=== PATIENT | male | born 1945 | race Caucasian/White ===

== ENCOUNTER 2023-01-19 09:58 | Inpatient (IN) | payer OTHER ==
[~2023-01-19] VITALS: Ht 177.8 cm; Wt 72.6 kg
[2023-01-19 10:00] VITALS: BP_SYST 111; PULSE 137; RESP 19; TEMP 97.8; O2SAT 99
[2023-01-19 10:30] LABS: BASOPHILS # (AUTO) 0.1 K/uL (0.0-0.2); BASOPHILS % (AUTO) 1.2 % (0.0-2.0); EOSINOPHILS # (AUTO) 0.2 K/uL (0.0-0.4); EOSINOPHILS % (AUTO) 4.6 % (0.0-4.0); HEMOGLOBIN 8.2 g/dL (14.0-18.0); LYMPHOCYTES # (AUTO) 0.6 K/uL (1.0-5.5); LYMPHOCYTES % (AUTO) 12.5 % (20.5-51.5); MEAN CORPUSCULAR HEMOGLOBIN 31 pg (27-31); MEAN CORPUSCULAR HGB CONC 33 % (32-36); MEAN CORPUSCULAR VOLUME 94 fL (79.0-98.0); MONOCYTES # (AUTO) 1.1 K/uL (0.0-1.0); MONOCYTES % (AUTO) 23.3 % (1.7-9.3); NEUTROPHILS # (AUTO) 2.7 K/uL (1.8-7.7); NEUTROPHILS % (AUTO) 58.4 % (40.0-70.0); PLATELET COUNT (AUTO) 263 K/uL (130-430); RED BLOOD CELL COUNT(AUTO) 2.68 MIL/uL (4.2-6.2); RED CELL DISTRIBUTION WIDTH 16.9 % (9.0-15.0); WHITE BLOOD COUNT (AUTO) 4.6 K/uL (4.8-10.8)
[2023-01-19] MEDS ORDERED: DILTIAZEM HCL 60 MG TABLET PO ONE (10:30)
[2023-01-19] MEDS ORDERED: dilTIAZem HCL IVP 5 MG/ML VIAL IVP ONE (10:30)
[2023-01-19 10:49] LABS: ANION GAP 13 (5-15); CALCIUM 8.8 mg/dL (8.4-11.0); CARBON DIOXIDE 21 mmol/L (23-29); CHLORIDE 103 mmol/L (98-107); CREATININE 1.06 mg/dL (0.55-1.30); GLUCOSE 112 mg/dL (74-106); POTASSIUM 3.4 mmol/L (3.5-5.1); SODIUM SERUM 137 mmol/L (136-145); UREA NITROGEN, BLOOD 22 mg/dL (8-21)
[2023-01-19 10:51] LABS: PROTHROMBIN TIME 10.7 SECS (9.5-12.5)
[2023-01-19 10:57] LABS: ALANINE AMINOTRANSFERASE 11 U/L (12-78); ASPARTATE AMINOTRANSFERASE 10 U/L (10-37); TOTAL BILIRUBIN 0.4 mg/dL (0.0-1.0); TOTAL PROTEIN, SERUM 5.8 g/dL (6.4-8.3)
[2023-01-19] MEDS ORDERED: NACL 0.9% 1,000 ML IV ONE (11:30)
[2023-01-19] MEDS ORDERED: HYDROcodone/ACETAMIN 5-325 MG TAB (NORCO/ VICODIN) PO ONE (12:45)
[2023-01-19] MEDS ORDERED: APIXABAN 2.5 MG TABLET PO ONE (13:00)
[2023-01-19] MEDS ORDERED: ATOR20TA64 PO (13:21)
[2023-01-19] MEDS ORDERED: ASPI-524 PO (13:21)
[2023-01-19] MEDS ORDERED: FERR325T30 PO (13:21)
[2023-01-19] MEDS ORDERED: IXAZ4CAP PO (13:21)
[2023-01-19] MEDS ORDERED: DOCU-144 PO (13:21)
[2023-01-19] MEDS ORDERED: TAMS-11 PO (13:21)
[2023-01-19] MEDS ORDERED: LENA10CA PO (13:21)
[2023-01-19] MEDS ORDERED: SYN50 PO (13:21)
[2023-01-19] MEDS ORDERED: DEXA4TAB PO (13:21)
[2023-01-19] MEDS ORDERED: LISI5TAB PO (13:21)
[2023-01-19 13:31] VITALS: BP_SYST 119; PULSE 71; RESP 18; TEMP 97.8; O2SAT 96
[2023-01-19 13:39] LABS: THYROID STIMULATING HORMONE 1.42 uIu/mL (0.34-4.82)
[2023-01-19] MEDS ORDERED: DILTIAZEM HCL 30 MG TABLET PO SCH (15:00)
[2023-01-19] MEDS ORDERED: CARVEDILOL 6.25 MG TABLET (COREG) PO SCH (21:00)
[2023-01-19] MEDS ORDERED: APIXABAN 2.5 MG TABLET PO SCH (21:00)
[2023-01-20] MEDS ORDERED: LEVOTHYROXINE SODIUM 0.05 MG TABLET PO SCH (07:00)
[2023-01-20] MEDS ORDERED: TAMSULOSIN HCL 0.4 MG CAP PO SCH (09:00)
[2023-01-20] MEDS ORDERED: lisinopriL 5 MG TABLET PO SCH (09:00)
[2023-01-20] MEDS ORDERED: ATORVASTATIN 20 MG TABLET PO SCH (09:00)
[2023-01-20] MEDS ORDERED: DECADRON 4 MG TABLET PO SCH (09:00)
[2023-01-20] MEDS ORDERED: FERROUS SULFATE 325 MG TABLET.DR PO SCH (09:00)
[2023-01-20] MEDS ORDERED: DOCUSATE SODIUM 100 MG CAPSULE PO SCH (09:00)
[2023-01-20] MEDS ORDERED: ASPIRIN 81 MG TAB.CHEW PO SCH (09:00)
== END 2023-01-19 14:49 | disposition left against medical advice (07) | DRG 309 ==
LOC: SED 09:58 → STU 12:58
PROVIDERS: ADMIT Specialist; ATTEND Specialist
DX: I48.91 Unspecified atrial fibrillation (principal); D68.69 Other thrombophilia; E44.1 Mild protein-calorie malnutrition; I10 Essential (primary) hypertension; E03.9 Hypothyroidism, unspecified; N40.0 Benign prostatic hyperplasia without lower urinary tract symptoms; Z79.01 Long term (current) use of anticoagulants; Z90.49 Acquired absence of other specified parts of digestive tract; Z85.850 Personal history of malignant neoplasm of thyroid; Z85.820 Personal history of malignant melanoma of skin; Z68.23 Body mass index [BMI] 23.0-23.9, adult
CPT/HCPCS: 36415; 71045; 80053; 80061; 84443; 84484; 85025; 85610-TC; 85730-TC; 93005; 93306; 96361; 96374; 99285; G0378; J3490

== ENCOUNTER 2023-02-26 16:01 | Inpatient (IN) | payer OTHER, MEDICAID ==
[~2023-02-26] VITALS: Ht 172.7 cm; Wt 63.5 kg
[~2023-02-26 16:01] MED LIST: ASPI-524 PO; ATOR20TA64 PO; DARA15VI SUBCUT; DEC4 PO; DEXA4TAB PO; DOCU-144 PO; FERR325T30 PO; FLUT1BLS15; IXAZ4CAP PO; LENA10CA PO; LISI-209 PO; LISI5TAB PO; SYN50 PO; TAMS-11 PO; TAMS0.4C96 PO; TIOT4MIS2 INH; ZOLE4VIA18 IV
[2023-02-26 16:09] VITALS: BP_SYST 119; PULSE 84; RESP 18; TEMP 98.3; O2SAT 97
[2023-02-26 16:48] LABS: MEAN CORPUSCULAR HEMOGLOBIN 33 pg (27-31); MEAN CORPUSCULAR HGB CONC 35 % (32-36); MEAN CORPUSCULAR VOLUME 95 fL (79.0-98.0); PLATELET COUNT (AUTO) 407 K/uL (130-430); RED CELL DISTRIBUTION WIDTH 17.8 % (9.0-15.0); WHITE BLOOD COUNT (AUTO) 6.7 K/uL (4.8-10.8)
[2023-02-26 16:55] LABS: ANION GAP 10 (5-15); CALCIUM 8.4 mg/dL (8.4-11.0); CARBON DIOXIDE 22 mmol/L (23-29); CHLORIDE 99 mmol/L (98-107); CREATININE 0.84 mg/dL (0.55-1.30); GLUCOSE 103 mg/dL (74-106); POTASSIUM 3.6 mmol/L (3.5-5.1); SODIUM SERUM 131 mmol/L (136-145); UREA NITROGEN, BLOOD 22 mg/dL (8-21)
[2023-02-26 16:59] LABS: RED BLOOD CELL COUNT(AUTO) 1.49 MIL/uL (4.2-6.2)
[2023-02-26 17:00] LABS: HEMATOCRIT 14.1 % (36-54); HEMOGLOBIN 4.9 g/dL (14.0-18.0)
[2023-02-26 17:02] LABS: ALANINE AMINOTRANSFERASE 27 U/L (12-78); ALBUMIN 2.5 g/dL (3.4-4.8); ASPARTATE AMINOTRANSFERASE 14 U/L (10-37); BILIRUBIN,DIRECT 0.1 mg/dL (0.0-0.3); TOTAL BILIRUBIN 0.3 mg/dL (0.0-1.0)
[2023-02-26 17:05] LABS: ANISOCYTOSIS 1+; BAND % (MANUAL) 3 % (0-6); BASOPHILS % (MANUAL) 0 % (0-2); EOSINOPHILS % (MANUAL) 0 % (0-7); LYMPHOCYTES % (MANUAL) 9 % (20-46); MONOCYTES % (MANUAL) 11 % (0-11); MYELOCYTES % 1 % (0-0); PLATELET ESTIMATE ADEQUATE (ADEQUATE)
[2023-02-26] MEDS ORDERED: PANTOPRAZOLE SODIUM 40 MG/VIAL (PROTONIX) IVP ONE (21:00)
[2023-02-26] MEDS ORDERED: PANTOPRAZOLE SODIUM 40 MG/VIAL (PROTONIX) ONE (23:19)
[2023-02-27] MEDS: D5/0.45 NS 1,000 ML IV SCH ×2 (00:41→04:22)
[2023-02-27] MEDS ORDERED: PANTOPRAZOLE SODIUM 40 MG/VIAL (PROTONIX) IVP SCH (09:00)
[2023-02-27] MEDS ORDERED: PANTOPRAZOLE SODIUM 40 MG/VIAL (PROTONIX) ONE (10:56)
[2023-02-27 17:04] VITALS: BP_SYST 151; PULSE 83; RESP 19; TEMP 98.2; O2SAT 97
[2023-02-28] MEDS ORDERED: ASPIRIN 81 MG TAB.CHEW PO SCH (09:00)
[2023-02-28] MEDS ORDERED: NICOTINE 21 MG/24 HR PATCH.TD24 TD SCH (09:00)
[2023-02-28] MEDS ORDERED: lisinopriL 5 MG TABLET PO SCH (09:00)
[2023-02-28] MEDS ORDERED: ZOLEDRONIC ACID 4 MG/5 ML VIAL IV SCH (09:00)
[2023-02-28] MEDS ORDERED: ATORVASTATIN 20 MG TABLET PO SCH (09:00)
[2023-02-28] MEDS ORDERED: DOCUSATE SODIUM 100 MG CAPSULE PO SCH (09:00)
[2023-02-28] MEDS ORDERED: DECADRON 4 MG TABLET PO SCH (09:00)
== END 2023-02-27 23:33 | disposition home or self-care (01) | DRG 378 ==
LOC: SED 16:01 → STU 18:30
PROVIDERS: ADMIT Specialist; ATTEND Specialist
PROC: 30233N1 Transfusion of Nonautologous Red Blood Cells into Peripheral Vein, Percutaneous Approach (ICD-10-PCS; principal; 2023-02-27)
DX: K92.2 Gastrointestinal hemorrhage, unspecified (principal); C90.00 Multiple myeloma not having achieved remission; D50.9 Iron deficiency anemia, unspecified; K25.9 Gastric ulcer, unspecified as acute or chronic, without hemorrhage or perforation; Z53.29 Procedure and treatment not carried out because of patient's decision for other reasons; N40.0 Benign prostatic hyperplasia without lower urinary tract symptoms; E03.9 Hypothyroidism, unspecified; E78.5 Hyperlipidemia, unspecified; Z79.82 Long term (current) use of aspirin; Z79.899 Other long term (current) drug therapy; D64.9 Anemia, unspecified
CPT/HCPCS: 36415; 71045; 80048; 80076; 83880; 84484; 85007; 85027; 86870; 86886; 86900; 86901; 86920; 93005; 99285; C9113; G0378; P9021

== ENCOUNTER 2023-03-01 04:24 | Inpatient (IN) | payer OTHER, MEDICAID ==
[~2023-03-01] VITALS: Ht 177.8 cm; Wt 64.6 kg
[~2023-03-01 04:24] MED LIST changes: -DEC4 PO; -LISI-209 PO; -SYN50 PO; -TAMS0.4C96 PO
[2023-03-01] MEDS ORDERED: NACL 0.9% 1,000 ML IV ONE (04:30)
[2023-03-01] MEDS ORDERED: NICOTINE 21 MG/24 HR PATCH.TD24 TD SCH (04:30)
[2023-03-01 04:33] VITALS: BP_SYST 95; PULSE 68; RESP 20; TEMP 97.5; O2SAT 95
[2023-03-01 04:53] LABS: BASOPHILS % (AUTO) 0.8 % (0.0-2.0); EOSINOPHILS % (AUTO) 0.4 % (0.0-4.0); LYMPHOCYTES # (AUTO) 0.4 K/uL (1.0-5.5); LYMPHOCYTES % (AUTO) 8.4 % (20.5-51.5); MEAN CORPUSCULAR HEMOGLOBIN 32 pg (27-31); MEAN CORPUSCULAR HGB CONC 34 % (32-36); MEAN CORPUSCULAR VOLUME 94 fL (79.0-98.0); MONOCYTES # (AUTO) 0.6 K/uL (0.0-1.0); MONOCYTES % (AUTO) 11.3 % (1.7-9.3); NEUTROPHILS # (AUTO) 3.9 K/uL (1.8-7.7); NEUTROPHILS % (AUTO) 79.1 % (40.0-70.0); PLATELET COUNT (AUTO) 395 K/uL (130-430); RED CELL DISTRIBUTION WIDTH 20.3 % (9.0-15.0); WHITE BLOOD COUNT (AUTO) 4.9 K/uL (4.8-10.8)
[2023-03-01 05:02] LABS: RED BLOOD CELL COUNT(AUTO) 1.65 MIL/uL (4.2-6.2)
[2023-03-01] MEDS ORDERED: NICOTINE 21 MG/24 HR PATCH.TD24 TD ONE (05:04)
[2023-03-01 05:08] LABS: ANION GAP 13 (5-15); CALCIUM 8.2 mg/dL (8.4-11.0); CARBON DIOXIDE 20 mmol/L (23-29); CHLORIDE 102 mmol/L (98-107); CREATININE 0.93 mg/dL (0.55-1.30); GLUCOSE 101 mg/dL (74-106); POTASSIUM 3.7 mmol/L (3.5-5.1); SODIUM SERUM 135 mmol/L (136-145); UREA NITROGEN, BLOOD 24 mg/dL (8-21)
[2023-03-01 05:09] LABS: INR 1.1 (0.80-1.20)
[2023-03-01 05:15] LABS: ALANINE AMINOTRANSFERASE 27 U/L (12-78); ALBUMIN 2.4 g/dL (3.4-4.8); ASPARTATE AMINOTRANSFERASE 12 U/L (10-37); TOTAL BILIRUBIN 0.4 mg/dL (0.0-1.0)
[2023-03-01 05:26] LABS: HEMATOCRIT 15.6 % (36-54); HEMOGLOBIN 5.2 g/dL (14.0-18.0)
[2023-03-01] MEDS ORDERED: PANTOPRAZOLE SODIUM 40 MG/VIAL (PROTONIX) IVP ONE (05:30)
[2023-03-01 07:30] LABS: BILIRUBIN,URINE NEGATIVE (NEGATIVE); BLOOD, URINE NEGATIVE (NEGATIVE); CLARITY/URINE CLEAR (CLEAR); COLOR,URINE YELLOW (YELLOW); GLUCOSE,URINE NEGATIVE (NEGATIVE); KETONES,URINE 1+ (NEGATIVE); LEUKOCYTE ESTERASE ,URINE NEGATIVE (NEGATIVE); NITRITE, URINE NEGATIVE (NEGATIVE); PROTEIN URINE NEGATIVE (NEGATIVE); UROBILINOGEN,URINE 0.2 (0.2-1.0)
[2023-03-01] MEDS ORDERED: PANTOPRAZOLE SODIUM 40 MG in NS 50 ML IV SCH (12:00)
[2023-03-01 14:52] LABS: TOTAL IRON BIND. CAPACITY 227 ug/dL (250-450)
[2023-03-01] MEDS ORDERED: PANTOPRAZOLE SODIUM 40 MG/VIAL (PROTONIX) ONE (16:34)
[2023-03-01 21:50] VITALS: BP_SYST 154; PULSE 98; RESP 17; TEMP 98.2
[2023-03-01] MEDS: PANTOPRAZOLE SODIUM 40 MG in NS 50 ML IV SCH (22:23)
[2023-03-01] MEDS: D5/0.45 NS 1,000 ML IV SCH (22:47)
[2023-03-01] MEDS: guaiFENesin/DEXTROMETHORPHAN 10 ML UDC PO PRN (22:51)
[2023-03-02] VITALS (9 sets, daily range): BP systolic 123–152; PULSE 84–113; RESP 16–19; TEMP 97.2–98.6; O2SAT 94–98
[2023-03-02] MEDS: PANTOPRAZOLE SODIUM 40 MG in NS 50 ML IV SCH ×5 (02:40→23:35)
[2023-03-02] MEDS: D5/0.45 NS 1,000 ML IV SCH (06:02)
[2023-03-02] MEDS: guaiFENesin/DEXTROMETHORPHAN 10 ML UDC PO PRN (06:02)
[2023-03-02] MEDS: TAMSULOSIN HCL 0.4 MG CAP PO SCH (09:00)
[2023-03-02] MEDS ORDERED: ASPIRIN 81 MG TAB.CHEW PO SCH (09:00)
[2023-03-02] MEDS: ATORVASTATIN 20 MG TABLET PO SCH (09:00)
[2023-03-02] MEDS ORDERED: ZOLEDRONIC ACID 4 MG/5 ML VIAL IV SCH (09:00)
[2023-03-02] MEDS: FERROUS SULFATE 325 MG TABLET.DR PO SCH (09:00)
[2023-03-02] MEDS: DOCUSATE SODIUM 100 MG CAPSULE PO SCH (09:00)
[2023-03-02] MEDS: lisinopriL 5 MG TABLET PO SCH (09:00)
[2023-03-02] MEDS: DECADRON 4 MG TABLET PO SCH (09:00)
[2023-03-02 12:09] LABS: BASOPHILS % (AUTO) 0.9 % (0.0-2.0); EOSINOPHILS # (AUTO) 0.1 K/uL (0.0-0.4); EOSINOPHILS % (AUTO) 2.6 % (0.0-4.0); HEMOGLOBIN 7.2 g/dL (14.0-18.0); LYMPHOCYTES # (AUTO) 0.4 K/uL (1.0-5.5); LYMPHOCYTES % (AUTO) 8.8 % (20.5-51.5); MEAN CORPUSCULAR HEMOGLOBIN 32 pg (27-31); MEAN CORPUSCULAR HGB CONC 34 % (32-36); MEAN CORPUSCULAR VOLUME 94 fL (79.0-98.0); MONOCYTES # (AUTO) 0.5 K/uL (0.0-1.0); MONOCYTES % (AUTO) 10.3 % (1.7-9.3); NEUTROPHILS # (AUTO) 3.5 K/uL (1.8-7.7); NEUTROPHILS % (AUTO) 77.4 % (40.0-70.0); PLATELET COUNT (AUTO) 284 K/uL (130-430); RED BLOOD CELL COUNT(AUTO) 2.25 MIL/uL (4.2-6.2); RED CELL DISTRIBUTION WIDTH 16.6 % (9.0-15.0); WHITE BLOOD COUNT (AUTO) 4.5 K/uL (4.8-10.8)
[2023-03-02 12:16] LABS: HEMATOCRIT 21.1 % (36-54)
[2023-03-02 12:28] LABS: ANION GAP 10 (5-15); CALCIUM 7.5 mg/dL (8.4-11.0); CARBON DIOXIDE 21 mmol/L (23-29); CHLORIDE 104 mmol/L (98-107); CREATININE 0.77 mg/dL (0.55-1.30); GLUCOSE 99 mg/dL (74-106); POTASSIUM 3.2 mmol/L (3.5-5.1); SODIUM SERUM 135 mmol/L (136-145); UREA NITROGEN, BLOOD 20 mg/dL (8-21)
[2023-03-02 12:33] LABS: ALANINE AMINOTRANSFERASE 23 U/L (12-78); ALBUMIN 2.1 g/dL (3.4-4.8); ASPARTATE AMINOTRANSFERASE 10 U/L (10-37); TOTAL BILIRUBIN 0.7 mg/dL (0.0-1.0); TOTAL PROTEIN, SERUM 4.7 g/dL (6.4-8.3)
[2023-03-02] MEDS: ALBUTEROL SULFATE 0.083% 2.5 MG/3 ML VIAL.NEB INH SCH ×2 (13:46→19:57)
[2023-03-02] MEDS ORDERED: CYANOCOBALAMIN 1000 MCG/ML VIAL IM ONE (15:15)
[2023-03-02] MEDS ORDERED: SIMETHICONE 40 MG/0.6 ML ML ONE (15:42)
[2023-03-02] MEDS: fentaNYL CITRATE/PF 100 MCG/2 ML AMP ONE ×4 (15:44→15:58)
[2023-03-02] MEDS: MIDAZOLAM HCL 5 MG/5 ML VIAL ONE ×4 (15:44→15:51)
[2023-03-02] MEDS ORDERED: EPINEPHrine JECT 0.1 MG/ML SYR ONE (16:09)
[2023-03-02] MEDS: BUDESONIDE 0.5 MG/2 ML AMPUL.NEB INH SCH (19:00)
[2023-03-03] VITALS (9 sets, daily range): BP systolic 102–119; PULSE 64–117; RESP 17–20; TEMP 97–98.9; O2SAT 92–98
[2023-03-03] MEDS: ALBUTEROL SULFATE 0.083% 2.5 MG/3 ML VIAL.NEB INH SCH ×4 (01:12→20:12)
[2023-03-03] MEDS: D5/0.45 NS 1,000 ML IV SCH ×2 (01:13→20:45)
[2023-03-03] MEDS: PANTOPRAZOLE SODIUM 40 MG in NS 50 ML IV SCH ×5 (03:41→22:51)
[2023-03-03 06:35] LABS: BASOPHILS % (AUTO) 0.2 % (0.0-2.0); EOSINOPHILS % (AUTO) 0.3 % (0.0-4.0); LYMPHOCYTES # (AUTO) 0.2 K/uL (1.0-5.5); LYMPHOCYTES % (AUTO) 3.9 % (20.5-51.5); MEAN CORPUSCULAR HEMOGLOBIN 32 pg (27-31); MEAN CORPUSCULAR HGB CONC 34 % (32-36); MEAN CORPUSCULAR VOLUME 94 fL (79.0-98.0); MONOCYTES # (AUTO) 0.6 K/uL (0.0-1.0); MONOCYTES % (AUTO) 12.8 % (1.7-9.3); NEUTROPHILS # (AUTO) 3.7 K/uL (1.8-7.7); NEUTROPHILS % (AUTO) 82.8 % (40.0-70.0); PLATELET COUNT (AUTO) 206 K/uL (130-430); WHITE BLOOD COUNT (AUTO) 4.5 K/uL (4.8-10.8)
[2023-03-03 07:00] LABS: ANION GAP 10 (5-15); CARBON DIOXIDE 20 mmol/L (23-29); CHLORIDE 107 mmol/L (98-107); GLUCOSE 159 mg/dL (74-106); POTASSIUM 3.2 mmol/L (3.5-5.1); SODIUM SERUM 137 mmol/L (136-145); UREA NITROGEN, BLOOD 22 mg/dL (8-21)
[2023-03-03] MEDS: BUDESONIDE 0.5 MG/2 ML AMPUL.NEB INH SCH ×2 (07:00→19:00)
[2023-03-03 07:27] LABS: CALCIUM 6.8 mg/dL (8.4-11.0)
[2023-03-03 07:40] LABS: RED BLOOD CELL COUNT(AUTO) 1.34 MIL/uL (4.2-6.2)
[2023-03-03 07:41] LABS: HEMOGLOBIN 4.3 g/dL (14.0-18.0)
[2023-03-03 07:42] LABS: HEMATOCRIT 12.6 % (36-54)
[2023-03-03] MEDS: FERROUS SULFATE 325 MG TABLET.DR PO SCH (10:59)
[2023-03-03] MEDS: DOCUSATE SODIUM 100 MG CAPSULE PO SCH (11:00)
[2023-03-03] MEDS: DECADRON 4 MG TABLET PO SCH (11:00)
[2023-03-03] MEDS: TAMSULOSIN HCL 0.4 MG CAP PO SCH (11:00)
[2023-03-03] MEDS: CYANOCOBALAMIN 1000 MCG/ML VIAL IM SCH (11:01)
[2023-03-03] MEDS: lisinopriL 5 MG TABLET PO SCH (11:01)
[2023-03-03] MEDS: ATORVASTATIN 20 MG TABLET PO SCH (11:02)
[2023-03-03 12:19] LABS: BASOPHILS % (AUTO) 0.5 % (0.0-2.0); EOSINOPHILS % (AUTO) 0.1 % (0.0-4.0); LYMPHOCYTES # (AUTO) 0.3 K/uL (1.0-5.5); LYMPHOCYTES % (AUTO) 7.5 % (20.5-51.5); MEAN CORPUSCULAR HEMOGLOBIN 32 pg (27-31); MEAN CORPUSCULAR HGB CONC 34 % (32-36); MEAN CORPUSCULAR VOLUME 95 fL (79.0-98.0); MONOCYTES # (AUTO) 0.5 K/uL (0.0-1.0); MONOCYTES % (AUTO) 13.7 % (1.7-9.3); NEUTROPHILS # (AUTO) 2.8 K/uL (1.8-7.7); NEUTROPHILS % (AUTO) 78.2 % (40.0-70.0); PLATELET COUNT (AUTO) 221 K/uL (130-430); RED CELL DISTRIBUTION WIDTH 17.4 % (9.0-15.0); WHITE BLOOD COUNT (AUTO) 3.6 K/uL (4.8-10.8)
[2023-03-03 12:27] LABS: RED BLOOD CELL COUNT(AUTO) 1.31 MIL/uL (4.2-6.2)
[2023-03-03 12:29] LABS: HEMATOCRIT 12.4 % (36-54); HEMOGLOBIN 4.2 g/dL (14.0-18.0)
[2023-03-03 12:45] LABS: ANION GAP 10 (5-15); CARBON DIOXIDE 19 mmol/L (23-29); CHLORIDE 109 mmol/L (98-107); CREATININE 0.92 mg/dL (0.55-1.30); GLUCOSE 133 mg/dL (74-106); POTASSIUM 3.1 mmol/L (3.5-5.1); SODIUM SERUM 138 mmol/L (136-145); UREA NITROGEN, BLOOD 28 mg/dL (8-21)
[2023-03-03] MEDS ORDERED: BISMUTH SUBSALICYLATE 262 MG TAB.CHEW PO PRN (13:00)
[2023-03-03] MEDS: AMOXICILLIN 250 MG/5 ML, 150 ML BTL PO SCH ×2 (14:00→22:50)
[2023-03-03] MEDS: SUCRALFATE 1 GM TABLET PO SCH (17:00)
[2023-03-04] VITALS (9 sets, daily range): BP systolic 106–132; PULSE 68–98; RESP 18–20; TEMP 97.3–98.7; O2SAT 88–100
[2023-03-04] MEDS: ALBUTEROL SULFATE 0.083% 2.5 MG/3 ML VIAL.NEB INH SCH ×3 (01:28→13:00)
[2023-03-04] MEDS: PANTOPRAZOLE SODIUM 40 MG in NS 50 ML IV SCH ×4 (04:00→19:00)
[2023-03-04 06:28] LABS: BASOPHILS % (AUTO) 0.3 % (0.0-2.0); EOSINOPHILS % (AUTO) 0.3 % (0.0-4.0); LYMPHOCYTES # (AUTO) 0.2 K/uL (1.0-5.5); LYMPHOCYTES % (AUTO) 5.7 % (20.5-51.5); MEAN CORPUSCULAR HEMOGLOBIN 31 pg (27-31); MEAN CORPUSCULAR HGB CONC 34 % (32-36); MEAN CORPUSCULAR VOLUME 92 fL (79.0-98.0); MONOCYTES # (AUTO) 0.6 K/uL (0.0-1.0); MONOCYTES % (AUTO) 16.1 % (1.7-9.3); NEUTROPHILS % (AUTO) 77.6 % (40.0-70.0); PLATELET COUNT (AUTO) 220 K/uL (130-430); RED BLOOD CELL COUNT(AUTO) 2.19 MIL/uL (4.2-6.2); RED CELL DISTRIBUTION WIDTH 15.8 % (9.0-15.0); WHITE BLOOD COUNT (AUTO) 3.8 K/uL (4.8-10.8)
[2023-03-04] MEDS: SUCRALFATE 1 GM TABLET PO SCH ×2 (06:36→17:00)
[2023-03-04] MEDS: AMOXICILLIN 250 MG/5 ML, 150 ML BTL PO SCH ×2 (06:36→14:00)
[2023-03-04] MEDS: BUDESONIDE 0.5 MG/2 ML AMPUL.NEB INH SCH (07:00)
[2023-03-04 07:39] LABS: HEMATOCRIT 20.2 % (36-54); HEMOGLOBIN 6.9 g/dL (14.0-18.0)
[2023-03-04] MEDS: lisinopriL 5 MG TABLET PO SCH (09:00)
[2023-03-04] MEDS: DOCUSATE SODIUM 100 MG CAPSULE PO SCH (09:00)
[2023-03-04] MEDS: ATORVASTATIN 20 MG TABLET PO SCH (09:00)
[2023-03-04] MEDS: FERROUS SULFATE 325 MG TABLET.DR PO SCH (09:00)
[2023-03-04] MEDS: TAMSULOSIN HCL 0.4 MG CAP PO SCH (09:00)
[2023-03-04] MEDS: CYANOCOBALAMIN 1000 MCG/ML VIAL IM SCH (10:51)
[2023-03-04] MEDS: D5/0.45 NS 1,000 ML IV SCH (11:04)
[2023-03-04] MEDS ORDERED: DESMOPRESSIN ACETATE 4 MCG/ML AMP IV ONE (11:30)
[2023-03-04] MEDS ORDERED: DESMOPRESSIN ACETATE 0.02 MG in NS 50 ML IV ONE (12:15)
[2023-03-05] MEDS ORDERED: NICOTINE 14 MG/24 HR PATCH.TD24 TD SCH (09:00)
[2023-03-05] MEDS ORDERED: MECL-292 PO (19:06)
[2023-03-05] MEDS ORDERED: HYDR-3917 PO (19:06)
== END 2023-03-04 19:37 | disposition left against medical advice (07) | DRG 378 ==
LOC: SED 04:24 → SMU 19:34
PROVIDERS: ADMIT Specialist; ATTEND Specialist
PROC: 30233N1 Transfusion of Nonautologous Red Blood Cells into Peripheral Vein, Percutaneous Approach (ICD-10-PCS; 2023-03-01)
PROC: 0DB78ZX Excision of Stomach, Pylorus, Via Natural or Artificial Opening Endoscopic, Diagnostic (ICD-10-PCS; principal; 2023-03-02 15:00)
PROC: 0W3P8ZZ Control Bleeding in Gastrointestinal Tract, Via Natural or Artificial Opening Endoscopic (ICD-10-PCS; 2023-03-02 15:00)
DX: K29.71 Gastritis, unspecified, with bleeding (principal); C90.00 Multiple myeloma not having achieved remission; D62 Acute posthemorrhagic anemia; E44.0 Moderate protein-calorie malnutrition; K26.4 Chronic or unspecified duodenal ulcer with hemorrhage; E53.8 Deficiency of other specified B group vitamins; K57.90 Diverticulosis of intestine, part unspecified, without perforation or abscess without bleeding; K44.9 Diaphragmatic hernia without obstruction or gangrene; I10 Essential (primary) hypertension; Z79.82 Long term (current) use of aspirin; Z79.899 Other long term (current) drug therapy; T39.315A Adverse effect of propionic acid derivatives, initial encounter
CPT/HCPCS: 36415; 43239; 43255; 78278; 80048; 80053; 81001; 81003; 82728; 83540; 83550; 84484; 85025; 85044; 85610; 85730; 86870; 86886; 86900; 86901; 86920; 87081; 88305; 88312; 88313; 93005; 94640; 94664; 94760; 96361; 96374; 99291; C9113; J0171; J2250; J2597; J3010; J3420; J7626; J8540; P9021

== ENCOUNTER 2023-03-05 11:25 | Inpatient (IN) | payer OTHER, MEDICAID ==
[~2023-03-05] VITALS: Ht 170.2 cm; Wt 72.6 kg
[2023-03-05 11:25] VITALS: BP_SYST 115; PULSE 72; PULSE 87; RESP 18; TEMP 98.1; O2SAT 98
[2023-03-05] MEDS ORDERED: NACL 0.9% 1,000 ML IV ONE (11:45)
[2023-03-05 12:03] LABS: BASOPHILS % (AUTO) 0.6 % (0.0-2.0); EOSINOPHILS % (AUTO) 1.4 % (0.0-4.0); LYMPHOCYTES # (AUTO) 0.2 K/uL (1.0-5.5); LYMPHOCYTES % (AUTO) 5.9 % (20.5-51.5); MEAN CORPUSCULAR HEMOGLOBIN 32 pg (27-31); MEAN CORPUSCULAR HGB CONC 34 % (32-36); MEAN CORPUSCULAR VOLUME 93 fL (79.0-98.0); MONOCYTES # (AUTO) 0.8 K/uL (0.0-1.0); MONOCYTES % (AUTO) 31.1 % (1.7-9.3); NEUTROPHILS # (AUTO) 1.6 K/uL (1.8-7.7); PLATELET COUNT (AUTO) 214 K/uL (130-430); RED BLOOD CELL COUNT(AUTO) 2.11 MIL/uL (4.2-6.2); RED CELL DISTRIBUTION WIDTH 15.9 % (9.0-15.0); WHITE BLOOD COUNT (AUTO) 2.7 K/uL (4.8-10.8)
[2023-03-05 12:12] LABS: ANION GAP 7 (5-15); CALCIUM 7.2 mg/dL (8.4-11.0); CARBON DIOXIDE 22 mmol/L (23-29); CHLORIDE 106 mmol/L (98-107); GLUCOSE 100 mg/dL (74-106); POTASSIUM 3.2 mmol/L (3.5-5.1); SODIUM SERUM 135 mmol/L (136-145); UREA NITROGEN, BLOOD 22 mg/dL (8-21)
[2023-03-05 12:19] LABS: HEMATOCRIT 19.6 % (36-54); HEMOGLOBIN 6.6 g/dL (14.0-18.0)
[2023-03-05 12:26] LABS: INR 1.1 (0.80-1.20); PROTHROMBIN TIME 11.4 SECS (9.5-12.5)
[2023-03-05] MEDS ORDERED: HYDROcodone/ACETAMIN 5-325 MG TAB (NORCO/ VICODIN) PO PRN ×2 (13:30→13:45)
[2023-03-05] MEDS ORDERED: ONDANSETRON HCL 4 MG/2 ML VIAL IVP PRN (13:30)
[2023-03-05] MEDS ORDERED: PANTOPRAZOLE SODIUM 80 MG in NS 100 ML IVP ONE (13:30)
[2023-03-05] MEDS ORDERED: MORPHINE 2 MG/ML INJ. SYRINGE IVP PRN (13:30)
[2023-03-05] MEDS ORDERED: DIPHENHYDRAMINE HCL 12.5 MG/5 ML UDC NG ONE (13:45)
[2023-03-05] MEDS ORDERED: IRON DEXTRAN COMPLEX 100 MG in NS 100 ML IV SCH (15:00)
[2023-03-05] MEDS ORDERED: PANTOPRAZOLE SODIUM 40 MG/VIAL (PROTONIX) ONE (15:04)
[2023-03-05] MEDS ORDERED: SOD FERRIC GLUC COMPLEX/SUC 125 MG in NS 100 ML IV SCH (17:00)
[2023-03-05] MEDS ORDERED: HYDR-3917 PO (19:06)
[2023-03-05] MEDS ORDERED: MECL-292 PO (19:06)
[2023-03-05] MEDS ORDERED: VANCOMYCIN HCL 1 GM/NS PREMIX 250 ML IV SCH (20:45)
[2023-03-05] MEDS ORDERED: PANTOPRAZOLE SODIUM 40 MG/VIAL (PROTONIX) IVP SCH (21:00)
[2023-03-05] MEDS ORDERED: NICOTINE 21 MG/24 HR PATCH.TD24 TD SCH (22:54)
[2023-03-05] MEDS: PIPERACILLIN/TAZO 3.375/DEX-IS 50 ML IV SCH (23:00)
[2023-03-05] MEDS ORDERED: VANCOMYCIN HCL 1000 MG/VIAL IV ONE (23:14)
[2023-03-05] MEDS ORDERED: PIPERACILLIN/TAZOBACTAM 3.375 GM/VIAL (ZOSYN) IV ONE (23:15)
[2023-03-06] MEDS: PIPERACILLIN/TAZO 3.375/DEX-IS 50 ML IV SCH (00:25)
[2023-03-06 00:40] LABS: HEMOGLOBIN 6.6 g/dL (14.0-18.0)
[2023-03-06 00:41] LABS: HEMATOCRIT 19.9 % (36-54)
[2023-03-06 01:19] VITALS: BP_SYST 134; PULSE 88; RESP 20; TEMP 98.3; O2SAT 96
== END 2023-03-06 01:22 | disposition left against medical advice (07) | DRG 377 ==
LOC: SED 11:25 → STU 13:20
PROVIDERS: ADMIT Family Medicine; ATTEND Family Medicine
DX: K26.0 Acute duodenal ulcer with hemorrhage (principal); J18.9 Pneumonia, unspecified organism; E87.1 Hypo-osmolality and hyponatremia; D50.9 Iron deficiency anemia, unspecified; Z53.21 Procedure and treatment not carried out due to patient leaving prior to being seen by health care provider; I10 Essential (primary) hypertension; K44.9 Diaphragmatic hernia without obstruction or gangrene; J44.9 Chronic obstructive pulmonary disease, unspecified; K29.70 Gastritis, unspecified, without bleeding; E87.6 Hypokalemia; E83.51 Hypocalcemia; Z79.82 Long term (current) use of aspirin; Z79.899 Other long term (current) drug therapy
CPT/HCPCS: 36415; 71045; 80048; 85018; 85025; 85610-TC; 85730-TC; 86870; 86886; 86900; 86901; 86920; 87040; 87081; 93005; 96365; 99285; C9113; G0378; J2543; J2916; J3370